=== PATIENT | male | born 1985 | race Two or more races ===

== ENCOUNTER 2017-05-28 10:19 | Emergency (ER) | payer OTHER ==
[~2017-05-28] VITALS: Ht 170.2 cm; Wt 67.1 kg
[2017-05-28 10:32] VITALS: BP 130/85
[2017-05-28] MEDS ORDERED: ARTIFICIAL TEAR15 ML RIGHT EYE (10:54)
[2017-05-28] MEDS ORDERED: GENTAK5 ML RIGHT EYE (10:54)
[2017-05-28 11:16] VITALS: BP 130/85
--- NOTE | 2017-05-28 11:24 | Emergency Room Report ---
History of Present Illness General Chief Complaint: Eye Problems Source: Patient Present Illness HPI Patient is a 32-year-old male presented after increased right eye discomfort and swelling. The patient reported having increased irritation to his right eye. He denied foreign body sensation. He denied any fever. He reported having some mild eye discharge. The patient onset of symptoms occurred yesterday. He denies contact lens use or visual changes. Allergies: Coded Allergies: No Known Allergies (Unverified , 05/28/17) Patient History Past Medical History: see triage record Reviewed Nursing Documentation: PMH: Agreed, PSxH: Agreed Nursing Documentation-PMH Past Medical History: No Stated History Review of Systems All Other Systems: negative except mentioned in HPI Physical Exam Vital Signs Date Time Temp Pulse Resp B/P Pulse Ox O2 Delivery O2 Flow Rate FiO2 05/28/17 10:26 97.9 55 18 130/85 98 General Appearance: well appearing, no apparent distress, alert, GCS 15 Head: normocephalic, atraumatic Eyes: bilateral eye other - conjunctival redness ENT: hearing grossly normal, normal voice Neck: full range of motion, supple Respiratory: no respiratory distress, speaking full sentences Musculoskeletal: no calf tenderness Neurologic: normal gait Psychiatric: mood/affect normal Skin: no rash Medical Decision Making Diagnostic Impression: Primary Impression: Conjunctivitis ER Course Patient presented for right eye redness. Differential diagnosis included but wasn't limited to glaucoma, iritis, corneal abrasion, bacterial conjunctivitis, viral conjunctivitis. The patient's pupils appear equal and reactive. The patient's eye exam is consistent with a bacterial conjunctivitis. Patient given prescription for eye antibiotics. 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 Last Vital Signs Date Time Temp Pulse Resp B/P Pulse Ox O2 Delivery O2 Flow Rate FiO2 05/28/17 11:16 97.9 65 18 130/85 98 Status: improved Disposition: HOME, SELF-CARE Condition: Stable Scripts Dextran 70/Hypromellose ([employer] EYE DROPS*) 15 Ml Drops 1 DROP RIGHT EYE FOUR TIMES A DAY for For Pain, #15 ML 0 Refills Prov: Rickie Martin 05/28/17 Gentamicin Sulfate* (GENTAK*) 5 Ml Drops 1 DROP RIGHT EYE Q4H, #5 DROP 0 Refills Prov: Rickie Martin 05/28/17 Referrals: [facility],REFERRING (PCP) Departure Forms: Return to Work Return to Work in (Days): 4 Patient Instructions: Bacterial Conjunctivitis Rickie Martin May 28, 2017 11:24
== END 2017-05-28 11:24 | disposition home or self-care (01) ==
LOC: EMR 11:00
DX: H10.9 Unspecified conjunctivitis (principal)
CPT/HCPCS: 99284